=== PATIENT | male | born 1985 | race African-American/Black ===

== ENCOUNTER 2020-11-05 14:58 | Emergency (ER) | payer MEDICAID ==
[~2020-11-05] VITALS: Ht 170.2 cm; Wt 100.0 kg
[2020-11-05] MEDS ORDERED: TETANUS, DIPHTHERIA, PERTUSSIS VAC/PF 0.5ML (>7YR OLD) IM ONE (15:30)
[2020-11-05] MEDS ORDERED: IBUPROFEN 600MG TABLET PO ONE (15:30)
[2020-11-05] MEDS ORDERED: BACITRACIN ZINC OINT UDPKT TOP ONE (15:30)
[2020-11-05 17:52] VITALS: BP 120/88
== END 2020-11-05 18:11 | disposition home or self-care (01) ==
LOC: ER 14:58
DX: S01.81XA Laceration without foreign body of other part of head, initial encounter (principal); S93.401A Sprain of unspecified ligament of right ankle, initial encounter; V49.40XA Driver injured in collision with unspecified motor vehicles in traffic accident, initial encounter; Y93.89 Activity, other specified; Y92.89 Other specified places as the place of occurrence of the external cause; Y99.8 Other external cause status
CPT/HCPCS: 12011; 70450; 73560; 73610; 90471; 90715; 99284; Z7610